=== PATIENT | male | born 1945 | race Caucasian/White ===

== ENCOUNTER 2016-04-23 02:27 | Inpatient (IN) | payer MEDICARE, OTHER ==
--- NOTE | ~2016-04-23 | HP ---
History And Physical [id number] [facility] [place]. [address] NAME: MARGARITO CALVERT : 43 STATUS : ADM IN PAT#: [id number] AGE: 70 ADM/REG DATE : 04/23/16 MR#: [id number] REPORT SERV DATE: 04/23/16 DICTATED BY: SIN RAGSDALE DATE: 04/23/16 REPORT STATUS : Draft TRANSCRIBED BY: MODShawna DATE: 04/23/16 DATE OF ADMISSION: 04/23/2016 POINT OF ENTRY: Transfer from [facility] Emergency Department. PRIMARY CARE PHYSICIAN: Yesika Bowen M.D. PRIMARY ONCOLOGIST: Bassem Louis M.D. PRIMARY RADIATION ONCOLOGIST: Rodney Dominique M.D. CHIEF COMPLAINT: Shortness of breath. 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 The patient is very hard of hearing and a poor historian. Therefore, history is mainly obtained from the patient's son and who are at bedside. They state that for the past week he has become progressively more and more short of breath. They recently started to utilize an oxygen condenser of a family member due to his shortness of breath and mild hypoxemia. About a week ago, they noted he was having some cough with sputum production, shortness of breath, and called Dr. Louis's office. It appears that he called in a prescription for Levaquin which family states did improve his symptoms somewhat. His last dose of antibiotic was Wednesday or Wednesday of this week. Today, he acutely became more short of breath. Home health nurse was also at his house today to evaluate him and noted that he was short of breath as well as having low oxygen levels, the details of which are unknown to me. Therefore, he was taken to the emergency department. Family reports that multiple episodes over the past week or so, he has had very severe dyspnea on exertion, decreased exercise tolerance and weakness and will almost "collapse" when he tried to stand up. They deny any recent fevers, night sweats, chills, chest pain, palpitations, abdominal pain, nausea, vomiting, diarrhea, constipation, dysuria, melena, hematochezia, hemoptysis, or hematemesis. Initial evaluation at [facility] notable for a chest x-ray that shows the left-sided pleural effusion. Labs are notable for a BNP mildly elevated at 239. Flu swab was negative. CT of the chest was nondiagnostic for PE given the reduced dose of contrast used, but did show left greater than right pleural effusions as well as multiple pulmonary nodules. No evidence of any focal consolidation or infiltrates. The patient was subsequently transferred to [facility] for higher level of care. REVIEW OF SYSTEMS: Comprehensive review of systems otherwise negative unless listed in history of present illness. History And Physical [address] [address] NAME: MARGARITO CALVERT : 43 STATUS : ADM IN PAT#: [id number] AGE: 70 ADM/REG DATE : 04/23/16 MR#: [id number] REPORT SERV DATE: 04/23/16 DICTATED BY: SIN RAGSDALE DATE: 04/23/16 REPORT STATUS : Draft TRANSCRIBED BY: JUDY DATE: 04/23/16 PREVIOUS MEDICAL HISTORY: 1. Metastatic melanoma with known metastases to the lung, left 5th rib as well as brain status post chemotherapy and radiation therapy. 2. Hypothyroidism. 3. Chronic kidney stage 3. 4. Remote history of cerebrovascular accident in 1998. 5. Hypertension, no longer on medications. 6. History of nonobstructive coronary artery disease. SURGICAL HISTORY: 1. Tonsillectomy. 2. Appendectomy. 3. Melanoma resection. 4. Leg open reduction and internal fixation. ALLERGIES: HYDROCODONE AND CODEINE. HOME MEDICATIONS: Pending at time of dictation. SOCIAL HISTORY: He is a former smoker, but quit about 35 years ago. Denies alcohol. Denies illicits. FAMILY MEDICAL HISTORY: Mother with congestive heart failure. Father of pneumonia. LABS AND IMAGING: All obtained from transfer records from [facility] Emergency Department: 1. White count 16.7, hemoglobin 10.1, hematocrit is 30.7, platelet count is a 130, INR is 1.3. 2. Sodium is 131, potassium 2.7, chloride 84, carbon dioxide 33, BUN 14, creatinine 1.40, glucose is 94, calcium is 8.5, protein is 5.1, albumin is 2.4, bilirubin is 0.9, ALT 21, AST 28, alkaline phosphatase is 240. 3. BNP is 239. Troponin is negative. 4. Lactic acid is 1.9. 5. Flu swab is negative. 6. TSH is 12.1. 7. CT of the chest shows nondiagnostic for PE. V/Q scan is recommended if PE is considered. This shows large left and small right pleural effusions with multiple pulmonary nodules. 8. Chest x-ray shows a left-sided pleural effusion. 9. EKG per my review shows normal sinus rhythm with right bundle branch block. No evidence of any acute ischemia or infarction. PHYSICAL EXAMINATION: VITAL SIGNS: Temperature is afebrile, saturating 100% on 3 L of cannula, respirations 18, blood pressure is 112/54, heart rate 74. GENERAL: The patient is awake, alert, in no acute distress. He is a chronically ill- History And Physical [address] [address] NAME: MARGARITO CALVERT : 43 STATUS : ADM IN [facility]#: [id number] AGE: 70 ADM/REG DATE : 04/23/16 MR#: [id number] REPORT SERV DATE: 04/23/16 DICTATED BY: SIN RAGSDALE DATE: 04/23/16 REPORT STATUS : Draft TRANSCRIBED BY: JUDY DATE: 04/23/16 appearing elderly male. Family is at bedside. He is very hard of hearing. HEENT: Atraumatic and normocephalic. Moist mucous membranes. Pupils equal, round, reactive to light and accommodation. Extraocular eye movements are intact. No scleral icterus. NECK: No jugular venous distention. No carotid bruits. CARDIAC: Regular rate and rhythm. 2/6 systolic murmur, heard best over left lower sternal border. LUNGS: Decreased breath sounds, left greater than right lung base, otherwise good inspiratory effort and air movement. No wheezes, rhonchi, or crackles appreciated. ABDOMEN: Soft, nontender, nondistended. Good bowel sounds. No rebound, guarding, or rigidity. EXTREMITIES: Warm and perfused. No cyanosis, clubbing, or edema. SKIN: Warm and dry. PSYCH: Affect appropriate. NEURO: Alert orient x3. Cranial nerves 2 through 12 grossly intact. Speech is normal. Gait not assessed. ASSESSMENT AND PLAN: The patient is 70-year-old gentleman with metastatic melanoma with known metastases to the lung who presents with 1-2 week history of progressive worsening shortness of breath, and found to have evidence of a large left-sided pleural effusion. PROBLEM LIST: 1. Shortness of breath, likely multifactorial. 2. Left pleural effusion. 3. Hypokalemia. 4. Hypernatremia. 5. Chronic kidney stage 3. 6. Leukocytosis. 7. History of metastatic melanoma. PLAN: 1. Shortness of breath. The patient's shortness of breath is likely multifactorial in etiology from his identified pleural effusions as well as known metastatic disease to the lung. Other considerations include possible congestive heart failure, recent pneumonia as well as debility and deconditioning. We will schedule for a diagnostic and therapeutic thoracentesis. I will check an echocardiogram as well as place the patient on p.r.n. DuoNebs and incentive spirometer. We will wean oxygen as tolerated. Of note, CT of the chest at outside facility was nondiagnostic for PE, but was also negative for focal consolidation infiltrate suggestive of pneumonia. Should patient's symptoms not improve after thoracentesis, a V/Q scan would be indicated given his history of malignancy. 2. Left-sided pleural effusion. We will schedule patient for diagnostic and therapeutic thoracentesis later today. 3. Leukocytosis, unclear etiology. The patient states he has not been on any steroids for quite some time. There was concern for recent pneumonia, however, he completed a course of antibiotics and chest x-ray and CT imaging are unremarkable. I am concerned that the source of leukocytosis may be his pleural effusion which we will follow up History And Physical [address] [place]. [address] NAME: MARGARITO CALVERT : 43 STATUS : ADM IN [facility]#: [id number] AGE: 70 ADM/REG DATE : 04/23/16 MR#: [id number] REPORT SERV DATE: 04/23/16 DICTATED BY: SIN RAGSDALE DATE: 04/23/16 REPORT STATUS : Draft TRANSCRIBED BY: MODL DATE: 04/23/16 with thoracentesis later today. We will check a procalcitonin level, urinalysis and blood cultures. We will hold off on antibiotics at this time. 4. Hypokalemia, electrolyte repletion protocol. 5. Elevated TSH level. Checking repeat TSH and free T4. 6. Metastatic melanoma per Dr. Louis. 7. DVT prophylaxis. Troy's and SCDs given impending thoracentesis. CODE STATUS: The patient wished to be DNR/DNI. This was confirmed with the patient. SILVIA/JUDY Sin Ragsdale MD / [id number] CC: Joel Ferraro III, M.D. John A Fortney, M.D.
--- NOTE | ~2016-04-23 | DS ---
Discharge Summary [facility] [address] [facility] [place]. [address] NAME: MARGARITO CALVERT : 43 STATUS : ADM IN PAT#: [id number] AGE: 70 ADM/REG DATE : 04/23/16 MR#: [id number] REPORT SERV DATE: 04/26/16 DICTATED BY: SIN HINDS II DATE: 04/26/16 REPORT STATUS : Draft TRANSCRIBED BY: JUDY DATE: 04/26/16 ADMISSION DATE: 04/23/2016 DISCHARGE DATE: 04/26/2016 DISCHARGE DIAGNOSES: 1. Acute hypoxic respiratory failure secondary to bilateral pleural effusions. 2. Metastatic melanoma. 3. Chronic kidney disease, stage 3. 4. Hypertension. 5. Debility. CONSULTS: Dr. Louis with Oncology. PROCEDURES: Left-sided thoracentesis with 1900 mL of fluid drained. BRIEF HISTORY OF PRESENT ILLNESS: The patient is a 70-year-old male with the above history presents to [facility] due to worsening shortness of breath. For detailed history and physical examination, please see Dr. Webster's note from 04/23/2016. HOSPITAL COURSE: After admission, the patient was provided supportive care and scheduled for a thoracentesis with the above-mentioned results. He tolerated it well, and the cultures from that were negative. Overall, given the patient's extensive metastatic disease including brain mets, it was decided that he is not a candidate for further chemotherapy and Dr. Louis recommended hospice. Overall, he is stable on 3 L nasal cannula, but fairly weak and debilitated. Currently, he and the family are in agreement to go home on hospice and is ready for discharge today. Hospice will take over the patient's care at home. FLORES/JUDY Sin Hinds II, MD / [id number] CC: MD Yesika Kathleen M.D.
[~2016-04-23 02:27] MED LIST: ASAB PO; CELEBREX2 PO; DEX4 PO; DILT-XR240 MG PO; L40 PO; LEVOTHYROXIN125 MCG PO; LOTE20 PO; PLAVIX PO; PRILO PO; ZOCOR10 PO; ZOL100 PO
[2016-04-23 08:04] LABS: MEAN CORPUS HGB CONC 32.5 g/dL (32.0-36.0); MEAN CORPUSCULAR HEMOGLOB 26.1 pg (26.0-34.0); MEAN CORPUSCULAR VOLUME 80.2 fL (80-100); MEAN PLATELET VOLUME 8.8 fL (9.2-13.0); WHITE BLOOD CELLS 12.6 10/3/uL (4.5-10.5)
[2016-04-23 08:14] LABS: HEMATOCRIT 28.3 % (40.0-51.0); HEMOGLOBIN 9.2 g/dL (13.6-17.8); PLATELET COUNT 93 10/3/uL (150-400); RBC DISTRIBUTION WIDTH 19.1 % (12.0-16.0); RED CELL COUNT 3.53 10/6/uL (4.7-6.1)
[2016-04-23 08:15] LABS: MANUAL DIFF YES %
[2016-04-23 08:36] LABS: LYMPHOCYTES 6 %; LYMPHOCYTES ABSOLUTE (CALC) 0.76 10/3/uL (0.67-4.30); MONOCYTES 2 %; MONOCYTES ABSOLUTE (CALC) 0.25 10/3/uL (0.21-1.20); NEUTROPHILS ABSOLUTE (CALC) 11.59 10/3/uL (2.02-8.40); SEGMENTED NEUTROPHIL (0) 92 %; TOTAL NUCLEATED CELLS 100
[2016-04-23 08:37] LABS: ANISOCYTOSIS 1+ (5-10/OIF) (0-5/OIF); PLATELET ESTIMATE DEC (ADEQUATE); POLYCHROMASIA 1+ (2-5/OIF) (0-1/OIF); TOXIC GRANULATION 1+
[2016-04-23 08:38] LABS: A/G RATIO 0.6 (0.7-1.9); ALBUMIN 1.7 G/DL (3.5-5.0); ALKALINE PHOSPHATASE 229 U/L (45-117); BUN (BLOOD UREA NITROGEN) 14 MG/DL (6-23); CALCIUM, SERUM 8.3 MG/DL (8.5-10.4); CHLORIDE, SERUM 88 MMOL/L (96-112); CO2 (CARBON DIOXIDE) 33 MMOL/L (24-34); CREATININE 1.49 MG/DL (0.70-1.30); FREE T4 1.28 NG/DL (0.76-1.46); GFR AFRICAN AMERICAN 54 ML/MIN (>=60); GFR NON AFRICAN AMERICAN 47 ML/MIN (>=60); GLUCOSE, SERUM 85 MG/DL (60-99); POTASSIUM, SERUM 3.1 MMOL/L (3.5-5.3); SGOT(AST) 50 U/L (5-40); SGPT(ALT) 23 U/L (5-65); SODIUM, SERUM 135 MMOL/L (135-148); TOTAL PROTEIN 4.7 G/DL (6.0-8.5); TROPONIN I <0.02 NG/ML (<0.05)
[2016-04-23 09:15] LABS: INTERNATIONAL NORMAL RATI 1.3 UNITS (-); PARTIAL THROMBO TIME 44.9 SEC (22.5-37.2); PROTIME (NOT ORD) 15.9 SEC (12.0-14.5)
[2016-04-23 09:37] LABS: PROCALCITONIN 1.03 ng/mL (<0.5)
[2016-04-23] MEDS ORDERED: ZOFRAN8 PO (10:30)
[2016-04-23] MEDS ORDERED: REG PO (10:31)
[2016-04-23] MEDS ORDERED: LIOR10 PO (10:31)
[2016-04-23] MEDS ORDERED: L40 PO (10:31)
[2016-04-23] MEDS ORDERED: LEVOTHYROXIN175 MCG PO (10:32)
[2016-04-23] MEDS ORDERED: docusate sodium PO (10:33)
[2016-04-23 11:36] LABS: ASCORBIC ACID (UR NOT ORDER) NEG (NEG); BILIRUBIN, URINE SMALL (NEG); KETONE, URINE TRACE MG/DL (NEG); LEUKOCYTE ESTERASE(NOT OR NEG (NEG); WBC (NOT ORDERED) (RFLEX) 3 (0-5)
[2016-04-23 15:39] LABS: LDH BODY FLUID (NOT ORD) 840 U/L; PROTEIN BODY FLUID 2.3 G/DL
[2016-04-23 16:02] LABS: BF TOTAL CELL CT (NOT ORD 184 /MM3; BODY FLUID RBC (NOT ORD) 3068 /MM3
[2016-04-23 16:49] LABS: BD FL LYMPH (NOT ORD) 47 %; BF BASO (NOT OF) 0 %; BF LARGE MONONUCLEAR 48 %; BODY FLUID EOS (NOT ORD) 0 %; BODY FLUID SEG (NOT ORD) 5 %
[2016-04-23 16:51] LABS: BD FL SOURCE (NOT ORD) LT PLEURAL
[2016-04-24 05:53] LABS: BASOPHILS 0.1 %; BASOPHILS ABSOLUTE 0.02 10/3/uL (0.0-0.16); EOSINOPHILS 0 %; HEMATOCRIT 29.4 % (40.0-51.0); HEMOGLOBIN 9.4 g/dL (13.6-17.8); IMMATURE GRANULOCYTES 2.4 %; IMMATURE GRANULOCYTES ABSOLUTE 0.34 10/3/uL (0.0-0.11); LYMPHOCYTES 13.3 %; LYMPHOCYTES ABSOLUTE 1.89 10/3/uL (0.67-4.30); MEAN CORPUSCULAR HEMOGLOB 25.7 pg (26.0-34.0); MEAN CORPUSCULAR VOLUME 80.3 fL (80-100); MEAN PLATELET VOLUME 8.3 fL (9.2-13.0); MONOCYTES ABSOLUTE 0.43 10/3/uL (0.21-1.20); NEUTROPHILS 81.2 %; NEUTROPHILS ABSOLUTE 11.49 10/3/uL (2.02-8.40); PLATELET COUNT 91 10/3/uL (150-400); RBC DISTRIBUTION WIDTH 19.1 % (12.0-16.0); RED CELL COUNT 3.66 10/6/uL (4.7-6.1); WHITE BLOOD CELLS 14.2 10/3/uL (4.5-10.5)
[2016-04-24 05:54] LABS: MANUAL DIFF NO %
[2016-04-24 06:14] LABS: BUN (BLOOD UREA NITROGEN) 16 MG/DL (6-23); CHLORIDE, SERUM 88 MMOL/L (96-112); CO2 (CARBON DIOXIDE) 31 MMOL/L (24-34); CREATININE 1.44 MG/DL (0.70-1.30); GFR AFRICAN AMERICAN 56 ML/MIN (>=60); GFR NON AFRICAN AMERICAN 49 ML/MIN (>=60); GLUCOSE, SERUM 91 MG/DL (60-99); POTASSIUM, SERUM 3.3 MMOL/L (3.5-5.3); SODIUM, SERUM 134 MMOL/L (135-148)
[2016-04-25 05:23] LABS: BASOPHILS 0.2 %; BASOPHILS ABSOLUTE 0.02 10/3/uL (0.0-0.16); EOSINOPHILS 0.2 %; EOSINOPHILS ABSOLUTE 0.02 10/3/uL (0.0-0.53); HEMOGLOBIN 8.9 g/dL (13.6-17.8); IMMATURE GRANULOCYTES 1.7 %; IMMATURE GRANULOCYTES ABSOLUTE 0.22 10/3/uL (0.0-0.11); LYMPHOCYTES 14.4 %; LYMPHOCYTES ABSOLUTE 1.84 10/3/uL (0.67-4.30); MEAN CORPUSCULAR HEMOGLOB 26.5 pg (26.0-34.0); MEAN CORPUSCULAR VOLUME 78.6 fL (80-100); MEAN PLATELET VOLUME 8.9 fL (9.2-13.0); MONOCYTES 2.7 %; MONOCYTES ABSOLUTE 0.34 10/3/uL (0.21-1.20); NEUTROPHILS 80.8 %; NEUTROPHILS ABSOLUTE 10.34 10/3/uL (2.02-8.40); PLATELET COUNT 70 10/3/uL (150-400); RBC DISTRIBUTION WIDTH 19.2 % (12.0-16.0); RED CELL COUNT 3.36 10/6/uL (4.7-6.1); WHITE BLOOD CELLS 12.8 10/3/uL (4.5-10.5)
[2016-04-25 05:25] LABS: HEMATOCRIT 26.4 % (40.0-51.0); MANUAL DIFF NO %; MEAN CORPUS HGB CONC 33.7 g/dL (32.0-36.0)
[2016-04-25 05:36] LABS: BUN (BLOOD UREA NITROGEN) 17 MG/DL (6-23); CALCIUM, SERUM 7.8 MG/DL (8.5-10.4); CHLORIDE, SERUM 88 MMOL/L (96-112); CO2 (CARBON DIOXIDE) 31 MMOL/L (24-34); CREATININE 1.22 MG/DL (0.70-1.30); GFR AFRICAN AMERICAN 69 ML/MIN (>=60); GFR NON AFRICAN AMERICAN 59 ML/MIN (>=60); GLUCOSE, SERUM 88 MG/DL (60-99); POTASSIUM, SERUM 3.2 MMOL/L (3.5-5.3); SODIUM, SERUM 131 MMOL/L (135-148)
[2016-04-25 06:19] LABS: PLATELET ESTIMATE DEC (ADEQUATE); SCHISTOCYTES OCC (0-2/OIF)
[2016-04-25 06:20] LABS: HYPOCHROMIA 1+ (3-10/OIF) (0-2/OIF)
== END 2016-04-26 19:18 | disposition hospice, home (50) | DRG 189 ==
LOC: 4SO 02:27
PROVIDERS: Internal Medicine
PROC: 0W9B3ZZ Drainage of Left Pleural Cavity, Percutaneous Approach (ICD-10-PCS; principal; 2016-04-23)
DX: J96.01 Acute respiratory failure with hypoxia (principal); E87.0 Hyperosmolality and hypernatremia; J91.0 Malignant pleural effusion; C78.00 Secondary malignant neoplasm of unspecified lung; C43.9 Malignant melanoma of skin, unspecified; C79.31 Secondary malignant neoplasm of brain; C79.51 Secondary malignant neoplasm of bone; N18.3 Chronic kidney disease, stage 3 (moderate); E03.9 Hypothyroidism, unspecified; E87.6 Hypokalemia; Z87.891 Personal history of nicotine dependence
CPT/HCPCS: 32555; 71010; 80048; 80053; 81001; 83615; 83880; 84132; 84145; 84157; 84439; 84443; 84484; 85025; 85610; 85730; 87040; 87070; 87205; 88112; 88305; 89051; A9270-GY; C8929; J2405; Q9957